=== PATIENT | male | born 1965 | race Caucasian/White ===

== ENCOUNTER 2020-04-24 10:13 | Emergency (ER) | payer OTHER, SELFPAY ==
--- NOTE | 2020-04-24 | CT_ITS ---
WS: [id number] CT HEAD NONCONTRAST HISTORY: BILAT WEAKNESS IN BOTH HANDS. TECHNIQUE: Contiguous axial imaging performed through the brain in 2.5 mm imaging. Bone and soft tiss ue windows. Sagittal and coronal reformats reviewed. All CT scans at [facility] use at le ast one of these dose optimization techniques: automated exposure control; mA and/or kV adjustment pe r patient size (includes targeted exams where dose is matched to clinical indication); or iterative r econstruction. DLP: 756.52 mGy-cm. COMPARISON: None available. No acute intracranial hemorrhage, midline shift or mass effect. No atrophy or prior infarcts or herniation. Ventricles: Normal size with no hydrocephalus. Paranasal sinuses: As visualized are clear. Mastoid air cells: Well pneumatized. Calvarium and scalp: Skull is intact with no soft tissue edema or swelling. Notified Дмитрий Vences DO at 04/24/2020 11:[address]/CT head wo con* [id number] IMPRESSION: Negative head CT.
[2020-04-24 10:31] VITALS: BP 162/97; PULSE 103; RESP 18; TEMP 36.7; O2SAT 99
--- NOTE | 2020-04-24 11:18 | ED_ITS ---
HPI - Neuro Symptoms/Deficit General: Chief Complaint: Neuro Symptoms/Deficit Stated Complaint: tingly/numbness in extremities,has a pacemaker Time Seen by Provider: 04/24/20 11:05 History of Present Illness: HPI Narrative: 54-year-old male comes in complaining of bilateral hand and feet numbness that began while he was in his car about 15 to 20 minutes prior to arrival. Is complaining at the time that he had the sense that he could not take a deep breath and was breathing real deeply but not particularly rapidly the numbness and tingling has resolved completely by now he had no difficulty with vision speech or swallowing no difficulty driving while that was happening he has no history of chest pain during this episode he is a recent upper respiratory symptoms denies any GI or symptoms Onset (ago): minute(s) History of same: Yes Severity: mild Quality: numb and tingling Relieving factors: time Exacerbating factors: none On Anticoagulants: No Associated symptoms: Deny chest pain, cough, diaphoresis, fevers/chills, headache(s), anorexia, malaise, nausea, seizures, short of breath, syncope, tingling, vertigo, vomiting or weakness Treatments Prior to Arrival: none Review of Systems Const: Denies: malaise or diaphoresis ENMT: Denies: throat pain, ear or mastoid pain, nasal discharge or nasal congestion Card: Denies: chest pain or syncope Resp: Denies: dyspnea, productive cough or non-productive cough GI: Denies: nausea or vomiting : Denies: flank pain, dysuria, urinary frequency or urinary urgency Skin/Breast: Denies: rash or pruritus Neuro: Denies: headache(s) or vertigo [facility] ED PFSH: Medical History (Updated 04/24/20 @ 13:06 by Дмитрий Vences DO) Hyperlipidemia Hypertension Nephrolithiasis Surgical History (Updated 04/24/20 @ 11:23 by Дмитрий Vences DO) H/O neck surgery S/P placement of cardiac pacemaker NIH stroke score NIHSS: Level Of Consciousness - 1a: 0 Level Of Consciousness Questions - 1b: Both Correct Level Of Consciousness Commands - 1c: Both Correct Best Gaze - 2: Normal Visual Chapman - 3: No Visual Loss Facial Palsy - 4: Normal Motor Arm Right - 5: No Drift Motor Arm Left - 5: No Drift Motor Leg Right - 6: No Drift Motor Leg Left - 6: No Drift Limb Ataxia - 7: Absent Sensory - 8: Normal Best Language - 9: No Aphasia Dysarthia - 10: Normal Extinction And Inattention - 11: 0 Score: Total Score: 0 Physical Exam Const: COMMON NORMALS: no acute distress GENERAL APPEARANCE: cooperative and comfortable ORIENTATION/CONSCIOUSNESS: Yes awake, Yes oriented to person, Yes oriented to place and Yes oriented to time HENMT: COMMON NORMALS: normocephalic, atraumatic, hearing grossly normal bilaterally, external ears normal, EAC's normal, TM's normal bilaterally, Normal nasal mucous membranes and turbinates present, moist oral mucous membranes and oropharynx normal HEAD & SCALP: normocephalic and atraumatic NOSE: Normal nasal mucous membranes and turbinates present EXTERNAL EAR: Yes external ears normal EXTERNAL AUDITORY CANAL: EAC's normal TYMPANIC MEMBRANE: TM's normal bilaterally Eye: COMMON NORMALS: Equal, round and reactive pupils present, EOMs intact bilaterally, conjunctivae normal and no scleral icterus CONJUNCTIVA: Yes conjunctivae normal PUPIL: Yes Equal, round and reactive pupils present Neck/C-Spine: COMMON NORMALS: full ROM, no lymphadenopathy, supple and no JVD Lymph: LYMPHATIC: no lymphadenopathy noted and no lymphedema noted Resp: COMMON NORMALS: normal respiratory effort, No retractions, No use of accessory muscles and clear to auscultation bilaterally AUSCULTATION: clear to auscultation bilaterally Cardio: COMMON NORMALS: no JVD, regular rate, regular rhythm and No murmurs present (Cardio) RATE: regular rate RHYTHM: regular rhythm GI: COMMON NORMALS: Soft to palpation and No hepatosplenomegaly present AUSCULTATION: Yes normoactive bowel sounds PALPATION: Yes Soft to palpation, No Tenderness to palpation present (GI), No Guarding due to palpation present (GI) and Yes No hepatosplenomegaly present Extremity: COMMON NORMALS: normal to inspection, capillary refill normal, no clubbing, cyanosis or edema, no calf tenderness and no pedal edema Neuro: SENSORIUM/ORIENTATION: Yes oriented to person, Yes oriented to place and Yes oriented to time Skin: COMMON NORMALS: no rashes or lesions noted GENERAL SKIN EXAM: no rashes or lesions noted Course Vital Signs: Vital signs: Vital Signs Temperature 98.1 F 04/24/20 10:31 Pulse Rate 103 H 04/24/20 10:31 Respiratory Rate 16 04/24/20 13:44 Blood Pressure 162/97 04/24/20 10:31 Pulse Oximetry 99 04/24/20 10:31 MDM - Neuro Symptoms/Deficit MDM Narrative: Medical decision making narrative: By the time the patient had arrived here he was completely symptom-free. Work-up done reviewed with the patient we will go ahead and discharge him home continue baby aspirin daily has any worsening or change symptoms or recurrence return to the emergency room Lab Data: Labs: Lab Results 04/24/20 04/24/20 Range/Units 12:36 12:36 WBC 6.4 (4.0-10.0) 10^3/ uL RBC 5.34 H (4.1-5.3) 10^6/u L Hgb 16.4 (11.7-16.6) g/dL Hct 49.1 (42.0-52.0) % MCV 91.9 (80-94) fL MCH 30.7 (28.0-34.0) pg MCHC 33.4 (30.0-36.0) g/dL RDW 11.9 L (12.1-15.1) % Plt Count 360 (130-400) 10^3/c mm MPV 8.6 (7.4-10.4) fL Neut % (Auto) 78.4 % Lymph % (Auto) 13.5 % [place] % (Auto) 5.2 % Eos % (Auto) 1.1 % Baso % (Auto) 1.3 % Neut # (Auto) 4.98 (1.8-7.7) 10^3/u L Lymph # (Auto) 0.9 (0.8-4.8) 10^3/u L [place] # (Auto) 0.3 (0.2-0.9) 10^3/u L Eos # (Auto) 0.1 (0.0-0.8) 10^3/u L Baso # (Auto) 0.1 (0.0-0.1) 10^3/u L Nucleated RBC % (a uto) 0 % Nucleated RBCs # 0.0 /100WBC Sodium 136 (136-145) mmol/L Potassium 4.5 (3.5-5.1) mmol/L Chloride 101 (98-107) mmol/L Carbon Dioxide 26 (22-29) mmol/L Anion Gap 13.5 (5-19) BUN 13 (6-20) mg/dL Creatinine 1.0 (0.7-1.2) mg/dL GFR Calculation 78.5 L (90-130) mL/min Glucose 112 (65-115) mg/dL Calculated Osmolal ity 279 L (285-295) mOsm/k g Calcium 10.2 (8.5-10.5) mg/dL Total Bilirubin 0.5 (0.15-1.2) mg/dL AST 33 (0-40) U/L ALT 49 H (0-41) U/L Alkaline Phosphata se 83 (40-130) IU/L Total Protein 8.6 (6.6-8.7) g/dL Albumin 5.5 H (3.5-5.2) g/dL Globulin 3.1 (1.3-4.6) g/dL Discharge Plan Discharge Patient Disposition: Home Clinical Impression: Numbness Condition: Stable Prescriptions: No Action simvastatin 20 mg Tablet 20 mg PO DAILY RF: 0 lisinopril-hydrochlorothiazide 20-25 mg Tablet 1 tab PO DAILY RF: 0 aspirin 81 mg Tablet,Chewable 81 mg PO DAILY RF: 0 Activity Restrictions/Additional Instructions: Continue aspirin daily follow-up with your primary care doctor week to recheck your blood pressure Discharge Date/Time: 04/24/20 13:45 Coding Level of Care Code ED Info Specialist for Arina Fwd Exam Comprehensive
--- NOTE | 2020-04-24 12:24 | ECG_ITS ---
[facility] Test Date: 2020-04-24 Pat Name: Alex King Department: Room: Gender: Male Emt P: ts : 1965 Requested By: Дмитрий Chun Order Number: [id number] Kelton MD: Bereket Jones M.D. Measurements Intervals [place] Rate: 88 P: 41 NV: 201 QRS: 49 QRSD: 88 T: 44 QT: 350 QTc: 424 Interpretive Statements SINUS RHYTHM No previous ECG available for comparison Electronically Signed On 04-24-2020 17:06:11 CDT by Bereket Jones M.D. [id number]
[2020-04-24 12:43] LABS: Basophils # 0.1 10^3/uL (0.0-0.1); Basophils % 1.3 %; Eosinophils # 0.1 10^3/uL (0.0-0.8); Eosinophils % 1.1 %; Hematocrit 49.1 % (42.0-52.0); Hemoglobin 16.4 g/dL (11.7-16.6); Lymphocytes # 0.9 10^3/uL (0.8-4.8); Lymphocytes % 13.5 %; Mean Corpuscular HGB Conc 33.4 g/dL (30.0-36.0); Mean Corpuscular Hemoglobin 30.7 pg (28.0-34.0); Mean Corpuscular Volume 91.9 fL (80-94); Mean Platelet Volume 8.6 fL (7.4-10.4); Monocytes # 0.3 10^3/uL (0.2-0.9); Monocytes % 5.2 %; Neutrophils # 4.98 10^3/uL (1.8-7.7); Neutrophils % 78.4 %; Nucleated Red Blood Cells % 0 %; Platelet Count 360 10^3/cmm (130-400); Red Blood Count 5.34 10^6/uL (4.1-5.3); Red Cell Distribution Width 11.9 % (12.1-15.1); White Blood Count 6.4 10^3/uL (4.0-10.0)
[2020-04-24 12:59] LABS: Alanine Aminotransferase 49 U/L (0-41); Albumin Level 5.5 g/dL (3.5-5.2); Alkaline Phosphatase 83 IU/L (40-130); Anion Gap 13.5 (5-19); Aspartate Amino Transferase 33 U/L (0-40); Blood Urea Nitrogen 13 mg/dL (6-20); Calcium 10.2 mg/dL (8.5-10.5); Carbon Dioxide 26 mmol/L (22-29); Chloride 101 mmol/L (98-107); Globulin 3.1 g/dL (1.3-4.6); Glomerular Filtration Rate 78.5 mL/min (90-130); Glucose 112 mg/dL (65-115); Osmolality Calculated 279 mOsm/kg (285-295); Potassium 4.5 mmol/L (3.5-5.1); Sodium 136 mmol/L (136-145); Total Bilirubin 0.5 mg/dL (0.15-1.2); Total Protein 8.6 g/dL (6.6-8.7)
[2020-04-24 13:44] VITALS: RESP 16
== END 2020-04-24 13:45 | disposition home or self-care (01) ==
PROVIDERS: Emergency Provider Family Medicine
DX: R20.0 Anesthesia of skin (principal); Z79.82 Long term (current) use of aspirin; I10 Essential (primary) hypertension; E78.5 Hyperlipidemia, unspecified; Z95.0 Presence of cardiac pacemaker
CPT/HCPCS: 12345; 36415; 70450; 80053; 85025; 93005; 93010; 99282; 99283

== ENCOUNTER 2020-09-21 11:29 | Emergency (ER) | payer OTHER, SELFPAY ==
[2020-09-21 11:35] VITALS: BP 131/75; PULSE 101; RESP 17; TEMP 37.1; O2SAT 94; BMI 29.5
--- NOTE | 2020-09-21 11:39 | XRR_ITS ---
PROCEDURE INFORMATION: Exam: XR Abdomen, 1 View Exam date and time: 09/21/2020 11:54 AM Age: 54 years old Clinical indication: Abdominal pain; Additional info: Abd/chest pain TECHNIQUE: Imaging protocol: XR of the abdomen. Views: Frontal supine view of the abdomen. 1 View. COMPARISON: No relevant prior studies available. FINDINGS: Gastrointestinal tract: Normal. No bowel dilation. Bones/joints: Unremarkable. XR/XR KUB portable [id number] IMPRESSION: No acute findings.
--- NOTE | 2020-09-21 11:42 | ECG_ITS ---
[facility] Test Date: 2020-09-21 Pat Name: Alex King Department: Room: Gender: Male Utility Bagger: : 1965 Requested By: Toby Hercules Order Number: [id number] Kelton MD: Bereket Jones M.D. Measurements Intervals [place] Rate: 97 P: 40 [place]: 179 QRS: 52 QRSD: 88 T: 30 QT: 342 QTc: 435 Interpretive Statements SINUS RHYTHM NONSPECIFIC T-WAVE ABNORMALITY Compared to ECG 04/24/2020 10:39:33 T-wave abnormality now present Electronically Signed On 09-21-2020 17:50:37 DRUM PLATER by Bereket Jones M.D. [email or web address]/[id number]
[2020-09-21 11:46] VITALS: BP 131/75; PULSE 109; RESP 16; O2SAT 94
--- NOTE | 2020-09-21 11:51 | ED_ITS ---
HPI - Chest Pain General: Chief Complaint: Chest Pain Stated Complaint: CHEST PAIN Time Seen by Provider: 09/21/20 11:32 Source: patient and EMS Mode of arrival: EMS History of Present Illness: HPI narrative: 54-year-old male presents to the emergency room with a chief complaint of Nonspecific chest pain radiating to both of his arms and numbness sensation as well as episode of dry heaves vomiting after eating some food this morning. Patient does report having a known history of heart issues he reports having prior history of sick sinus syndrome requiring pacemaker placement. The patient does not have any stents in his heart reports no other cardiac history he reports during the event he developed midsternal chest pain epigastric abdominal pain with the sensation of doing sweaty and wanting to pass out when he had a couple episodes of red emesis. Patient provided 1 dose of nitroglycerin per EMS reports no improvement of his chest discomfort reporting no other associated symptoms. MD complaint: chest pain Timing of current episode: episodic Pain location: substernal and epigastric Pain radiation: right arm and left arm Severity: moderate Associated symptoms: Reports abdominal pain, nausea and vomiting; Deny dyspnea or palpitations Review of Systems General: Reports: 10 or more systems reviewed and unremarkable except in HPI and below Const: Reports: change in appetite, fatigue and malaise Eyes: Denies: change in vision or blurry vision Card: Reports: chest pain; Denies: palpitations Resp: Denies: dyspnea or productive cough GI: Reports: abdominal pain, nausea, vomiting, hematemesis and heartburn : Denies: flank pain Musc: Denies: extremity pain or extremity swelling Skin/Breast: Denies: rash or pruritus Neuro: Denies: headache(s) Psych: Denies: anxiety or depression Javier/Lymph: Denies: easy bleeding All/Imm: Denies: urticaria, throat swelling or facial swelling PFS ED PFSH: Medical History (Updated 09/21/20 @ 15:34 by Toby Hercules) Hyperlipidemia Hypertension Nephrolithiasis Surgical History (Updated 04/24/20 @ 11:23 by Дмитрий Vences DO) H/O neck surgery S/P placement of cardiac pacemaker Physical Exam Narrative: EXAM NARRATIVE: Patient appears in mild distress nontoxic-appearing moderate epigastric abdominal discomfort appreciated palpation with mild distention afebrile. Const: COMMON NORMALS: no acute distress, patient oriented x3 and healthy appearing HENMT: COMMON NORMALS: normocephalic and atraumatic HEAD & SCALP: normocephalic and atraumatic Eye: COMMON NORMALS: Equal, round and reactive pupils present and EOMs intact bilaterally PUPIL: Yes Equal, round and reactive pupils present Neck/C-Spine: COMMON NORMALS: full ROM, supple and no JVD Lymph: LYMPHATIC: no lymphadenopathy noted Chest: COMMONS NORMALS: normal inspection of the chest Resp: COMMON NORMALS: normal respiratory effort, No retractions and clear to auscultation bilaterally (No obvious wheezing crackles rales or rhonchi noted.) EFFORT & INSPECTION: Yes able to speak in complete sentences and Yes symmetric chest movement AUSCULTATION: clear to auscultation bilaterally (No obvious wheezing crackles rales or rhonchi noted.) Cardio: COMMON NORMALS: no JVD, regular rate and regular rhythm RATE: regular rate RHYTHM: regular rhythm GI: COMMON NORMALS: Normal to inspection, nondistended, normoactive bowel sounds present, Soft to palpation and non-tender (Mild tenderness noted to the epigastric region otherwise soft nontender) INSPECTION: Yes normal to inspection AUSCULTATION: Yes normoactive bowel sounds PALPATION: Yes Soft to palpation : COMMON NORMALS: Yes no CVA tenderness BLADDER/KIDNEY EXAM: Yes no CVA tenderness Back/Pelvis: COMMON NORMALS: no CVA tenderness Extremity: COMMON NORMALS: normal to inspection and full ROM GENERAL: Yes normal exam except as noted Neuro: COMMON NORMALS: patient oriented x3, CN's II-XII intact bilaterally, moves all extremities and no focal motor deficits Psych: COMMON NORMALS: mental status grossly normal, Normal thought process present, cooperative and normal affect THOUGHT PROCESS: Normal thought process present Skin: COMMON NORMALS: no rashes or lesions noted GENERAL SKIN EXAM: no rashes or lesions noted Course Vital Signs: Vital signs: Vital Signs Temperature 98.8 F 09/21/20 11:35 Pulse Rate 89 09/21/20 15:44 Respiratory Rate 20 H 09/21/20 15:44 Blood Pressure 143/88 09/21/20 15:44 Pulse Oximetry 96 09/21/20 15:44 MDM - Chest Pain MDM Narrative: Medical decision making narrative: Due to the patient condition IV was established lab work and imaging was obtained a basic cardiac and GI work-up will be obtained. We will continue to follow. Will be provide the patient some Zofran GI cocktail and additional medications this pain this time appears to be noncardiac underlying concerns of potential upper GI gastric ulcer versus other is prominent. Patient setting EKG appears unchanged from the prior. First troponin appears unremarkable at this time does appear to be more gastrointestinal however a second troponin will be obtained do to the patient's known cardiac history. We will continue to follow. Patient's lab work and imaging repeat cardiac troponins came back unremarkable the patient was subsequently discharged home provided with additional medications for her stomach advised to follow-up with her primary care doctor in 5 days and return in the interim if any of the symptoms persist or worse. Patient had no additional episodes of emesis or bloody vomitus throughout his stay in the emergency department. Lab Data: Labs: Lab Results 09/21/20 09/21/20 09/21/20 Range/Units 12:36 12:36 12:36 WBC 7.8 (4.0-10.0) 10^3/ uL RBC 5.02 (4.1-5.3) 10^6/u L Hgb 15.4 (11.7-16.6) g/dL Hct 45.8 (42.0-52.0) % MCV 91.2 (80-94) fL MCH 30.7 (28.0-34.0) pg MCHC 33.6 (30.0-36.0) g/dL RDW 11.9 L (12.1-15.1) % Plt Count 346 (130-400) 10^3/c mm MPV 8.8 (7.4-10.4) fL Neut % (Auto) 76.1 % Lymph % (Auto) 15.1 % [place] % (Auto) 6.9 % Eos % (Auto) 0.8 % Baso % (Auto) 0.8 % Neut # (Auto) 5.95 (1.8-7.7) 10^3/u L Lymph # (Auto) 1.2 (0.8-4.8) 10^3/u L [place] # (Auto) 0.5 (0.2-0.9) 10^3/u L Eos # (Auto) 0.1 (0.0-0.8) 10^3/u L Baso # (Auto) 0.1 (0.0-0.1) 10^3/u L Nucleated RBC % (a uto) 0 % Nucleated RBCs # 0.0 /100WBC Sodium 137 (136-145) mmol/L Potassium 4.1 (3.5-5.1) mmol/L Chloride 102 (98-107) mmol/L Carbon Dioxide 26 (22-29) mmol/L Anion Gap 13.1 (5-19) BUN 17 (6-20) mg/dL Creatinine 1.1 (0.7-1.2) mg/dL GFR Calculation 70.3 L (90-130) mL/min Glucose 107 (65-115) mg/dL Calculated Osmolal ity 286 (285-295) mOsm/k g Calcium 9.1 (8.5-10.5) mg/dL Total Bilirubin 0.4 (0.15-1.2) mg/dL AST 26 (0-40) U/L ALT 50 H (0-41) U/L Alkaline Phosphata se 73 (40-130) IU/L Troponin T Baselin e 9 (0-15) ng/L Troponin T 120 Min [place] (0-15) ng/L Delta Troponin T (0-10) ABS# NT-Pro-B Natriuret Pep 5 (0-125) pg/mL Total Protein 6.9 (6.6-8.7) g/dL Albumin 4.5 (3.5-5.2) g/dL Globulin 2.4 (1.3-4.6) g/dL Lipase 32 (13-60) U/L 09/21/20 Range/Units 14:18 WBC (4.0-10.0) 10^3/ uL RBC (4.1-5.3) 10^6/u L Hgb (11.7-16.6) g/dL Hct (42.0-52.0) % MCV (80-94) fL MCH (28.0-34.0) pg MCHC (30.0-36.0) g/dL RDW (12.1-15.1) % Plt Count (130-400) 10^3/c mm MPV (7.4-10.4) fL Neut % (Auto) % Lymph % (Auto) % [place] % (Auto) % Eos % (Auto) % Baso % (Auto) % Neut # (Auto) (1.8-7.7) 10^3/u L Lymph # (Auto) (0.8-4.8) 10^3/u L [place] # (Auto) (0.2-0.9) 10^3/u L Eos # (Auto) (0.0-0.8) 10^3/u L Baso # (Auto) (0.0-0.1) 10^3/u L Nucleated RBC % (a uto) % Nucleated RBCs # /100WBC Sodium (136-145) mmol/L Potassium (3.5-5.1) mmol/L Chloride (98-107) mmol/L Carbon Dioxide (22-29) mmol/L Anion Gap (5-19) BUN (6-20) mg/dL Creatinine (0.7-1.2) mg/dL GFR Calculation (90-130) mL/min Glucose (65-115) mg/dL Calculated Osmolal ity (285-295) mOsm/k g Calcium (8.5-10.5) mg/dL Total Bilirubin (0.15-1.2) mg/dL AST (0-40) U/L ALT (0-41) U/L Alkaline Phosphata se (40-130) IU/L Troponin T Baselin e (0-15) ng/L Troponin T 120 Min [place] 9.19 (0-15) ng/L Delta Troponin T 0.19 (0-10) ABS# NT-Pro-B Natriuret Pep (0-125) pg/mL Total Protein (6.6-8.7) g/dL Albumin (3.5-5.2) g/dL Globulin (1.3-4.6) g/dL Lipase (13-60) U/L EKG Data^: EKG 1: EKG interpretation date: 09/21/20 EKG interpretation time: 12:28 Other EKG comments: Normal sinus rhythm rate of [address] segment elevations or depressions appreciated mild T wave abnormality appreciated in the anterior lateral leads with no reciprocal changes. EKG 2: Attestation: I personally reviewed and interpreted this EKG as follows: EKG interpretation date: 09/21/20 EKG interpretation time: 13:30 Prior EKG tracings: available for review Ischemic changes: non-specific ST-T wave changes Interpretation: Normal sinus rhythm rate of [address] segment elevation depressions appreciated this appears to be a paced rhythm normal axis appreciated Pacemaker function: normal pacer function Discharge Plan Discharge Patient Disposition: Home Clinical Impression: Atypical chest pain Gastritis Qualifiers: Gastritis type: other gastritis Condition: Stable Prescriptions: New Protonix 40 mg tablet,delayed release (DR/EC) 40 mg PO DAILY Qty: 20 RF: 0 Zofran 4 mg tablet 4 mg PO TID PRN (Reason: nausea and vomiting) Qty: 20 RF: 0 No Action simvastatin 20 mg Tablet 20 mg PO DAILY@07 RF: 0 lisinopril-hydrochlorothiazide 20-25 mg Tablet 1 tab PO DAILY@07 RF: 0 aspirin 81 mg Tablet,Chewable 81 mg PO DAILY@07 RF: 0 Apple Cider Vinegar Liquid See Rx Instructions .ROUTE .COMPLEX RF: 0 Probiotic 20 billion cell Capsule See Rx Instructions .ROUTE .COMPLEX RF: 0 Diatomaceous Powder 1 tsp PO DAILY RF: 0 MCT Oil See Rx Instructions .ROUTE .COMPLEX RF: 0 Remag Liquid See Rx Instructions .ROUTE .COMPLEX RF: 0 Discharge Orders: Discharge ED (Routine); Ordered 09/21/20 Ordered By: Toby Hercules Patient Instructions: Chest Pain (ED), Gastritis (ED), Diet for Ulcers and Gastritis (ED) Activity Restrictions/Additional Instructions: Follow-up with your primary care doctor or environmental projects advisor in the next 5 days take medication as prescribed and return in the interim if any of your symptoms persist or worsen. Coding Level of Care Code ED Sewing Machine Bobbin Winder for Arina Fwd Exam Comprehensive
[2020-09-21] MEDS: ondansetron 2 mg/ML SDV 2 mL 4 MG IVP (12:31)
[2020-09-21] MEDS: sodium chloride 0.9% 1,000 ML 999 ML IV (12:31)
[2020-09-21] MEDS: famotidine 20 mg/2 mL INJ 40 MG IVP (12:33)
[2020-09-21 12:38] VITALS: BP 123/75; PULSE 92; RESP 19; O2SAT 96
[2020-09-21 12:51] LABS: Basophils # 0.1 10^3/uL (0.0-0.1); Basophils % 0.8 %; Eosinophils # 0.1 10^3/uL (0.0-0.8); Eosinophils % 0.8 %; Hematocrit 45.8 % (42.0-52.0); Hemoglobin 15.4 g/dL (11.7-16.6); Lymphocytes # 1.2 10^3/uL (0.8-4.8); Lymphocytes % 15.1 %; Mean Corpuscular HGB Conc 33.6 g/dL (30.0-36.0); Mean Corpuscular Hemoglobin 30.7 pg (28.0-34.0); Mean Corpuscular Volume 91.2 fL (80-94); Mean Platelet Volume 8.8 fL (7.4-10.4); Monocytes # 0.5 10^3/uL (0.2-0.9); Monocytes % 6.9 %; Neutrophils # 5.95 10^3/uL (1.8-7.7); Neutrophils % 76.1 %; Nucleated Red Blood Cells % 0 %; Platelet Count 346 10^3/cmm (130-400); Red Blood Count 5.02 10^6/uL (4.1-5.3); Red Cell Distribution Width 11.9 % (12.1-15.1); White Blood Count 7.8 10^3/uL (4.0-10.0)
[2020-09-21 13:28] LABS: Troponin(5th) Baseline 9 ng/L (0-15)
[2020-09-21 13:35] LABS: Alanine Aminotransferase 50 U/L (0-41); Albumin Level 4.5 g/dL (3.5-5.2); Alkaline Phosphatase 73 IU/L (40-130); Anion Gap 13.1 (5-19); Aspartate Amino Transferase 26 U/L (0-40); Blood Urea Nitrogen 17 mg/dL (6-20); Calcium 9.1 mg/dL (8.5-10.5); Carbon Dioxide 26 mmol/L (22-29); Chloride 102 mmol/L (98-107); Globulin 2.4 g/dL (1.3-4.6); Glomerular Filtration Rate 70.3 mL/min (90-130); Glucose 107 mg/dL (65-115); Lipase 32 U/L (13-60); NT Pro B Type Natriuretic Pept 5 pg/mL (0-125); Osmolality Calculated 286 mOsm/kg (285-295); Potassium 4.1 mmol/L (3.5-5.1); Sodium 137 mmol/L (136-145); Total Bilirubin 0.4 mg/dL (0.15-1.2); Total Protein 6.9 g/dL (6.6-8.7)
--- NOTE | 2020-09-21 13:42 | ECG_ITS ---
[facility] Test Date: 2020-09-21 Pat Name: Alex King Department: Room: Gender: Male Polysomnographic Tech: : 1965 Requested By: Toby Hercules Order Number: [id number] Kelton MD: Bereket Jones M.D. Measurements Intervals [place] Rate: 83 P: 29 ME: 189 QRS: 45 QRSD: 91 T: 20 QT: 377 QTc: 444 Interpretive Statements SINUS RHYTHM WITH SINUS ARRHYTHMIA NONSPECIFIC T-WAVE ABNORMALITY Compared to ECG 09/21/2020 12:28:17 No significant changes Electronically Signed On 09-21-2020 17:57:59 MOTOR ROUTE CARRIER by Bereket Jones M.D. [id number]
[2020-09-21 14:48] LABS: Troponin 5 2HR 9.19 ng/L (0-15); Troponin 5 2HR Delta 0.19 ABS# (0-10)
[2020-09-21 15:44] VITALS: BP 143/88; PULSE 89; RESP 20; O2SAT 96
== END 2020-09-21 15:45 | disposition home or self-care (01) ==
PROVIDERS: Emergency Provider Emergency Medicine
DX: R07.89 Other chest pain (principal); K29.60 Other gastritis without bleeding; E78.5 Hyperlipidemia, unspecified; I10 Essential (primary) hypertension; Z95.0 Presence of cardiac pacemaker
CPT/HCPCS: 12345; 74018; 80053; 83690; 83880; 84484; 85025; 93005; 96361; 96374; 96375; 99282; 99283; J2405; J3490; J7030